=== PATIENT | male | born 2000 | race Caucasian/White ===

== ENCOUNTER 2020-02-29 20:40 | Emergency (ER) | payer MEDICAID, SELFPAY ==
[2020-02-29] VITALS (10 sets, daily range): BP systolic 140–163; BP diastolic 84–97; PULSE 70–99; RESP 16; TEMP 36.6; O2SAT 98–99; BMI 24.3
--- NOTE | 2020-02-29 20:51 | CTR_ITS ---
PROCEDURE INFORMATION: Exam: CT Head Without Contrast Exam date and time: 02/29/2020 8:53 PM Age: 19 years old Clinical indication: Altered mental status/memory loss; Patient HX: AMS. Patient nearly catatonic. No further history. TECHNIQUE: Imaging protocol: Computed tomography of the head without contrast. Radiation optimization: All CT scans at this facility use at least one of these dose optimization techniques: automated exposure control; mA and/or kV adjustment per patient size (includes targeted exams where dose is matched to clinical indication); or iterative reconstruction. COMPARISON: No relevant prior studies available. RADIATION DOSE METRICS: Total DLP: 859.2 mGy-cm FINDINGS: Brain: Normal. No hemorrhage. Unremarkable white matter. No mass effect. Ventricles: Normal. No ventriculomegaly. Bones/joints: Unremarkable. No acute fracture. Sinuses: Visualized sinuses are unremarkable. No fluid levels. Mastoid air cells: Visualized mastoid air cells are well aerated. Soft tissues: Unremarkable. CT/CT head wo con* [id number] IMPRESSION: No acute intracranial abnormality. Radiation Dose CTDIVOL = (mGy): DLP = 859.2 (mGy-cm)
--- NOTE | 2020-02-29 20:51 | XRR_ITS ---
PROCEDURE INFORMATION: Exam: XR Chest, 1 View Exam date and time: 02/29/2020 9:08 PM Age: 19 years old Clinical indication: Cough TECHNIQUE: Imaging protocol: XR of the chest Views: 1 view. COMPARISON: No relevant prior studies available. FINDINGS: Lungs: Unremarkable. No consolidation. Pleural space: No pneumothorax. Heart/Mediastinum: Unremarkable. No cardiomegaly. Bones/joints: No acute findings. XR/XR chest 1V portable [id number] IMPRESSION: No acute findings.
--- NOTE | 2020-02-29 20:52 | ECG_ITS ---
Measurements Intervals [place] Rate: 82 P: 33 WV: 164 QRS: 60 QRSD: 76 T: 31 QT: 327 QTc: 384 SINUS RHYTHM WITH SINUS ARRHYTHMIA Compared to ECG 02/06/2016 12:58:29 Sinus bradycardia no longer present Electronically Signed On 03-01-2020 16:19:31 CDT by Rocio Hernandez M.D. [email or web address]
--- NOTE | 2020-02-29 20:54 | W.ED.CHESTPA ---
HPI - Chest Pain General: Chief Complaint: Chest Pain Stated Complaint: cp sob Time Seen by Provider: 02/29/20 20:51 History of Present Illness: HPI narrative: George is a 19-year-old male brought in with a report of altered mental status, chest pain and collapsing. This was witnessed by admissions staff here at our hospital. The person that dropped him off was reportedly his [id number] and she has left. The patient will answer some yes and no questions but not others. History is very limited at this time. He indicates that he has chest pain by shaking his head and denies any shortness of breath. He is denying taking any drugs. Review of Systems General: Reports: Other (Patient will not cooperate to answer questions.) PFSH ED PFSH: Social History Smoking and tobacco status: current every day smoker Physical Exam Const: COMMON NORMALS: healthy appearing and well nourished GENERAL APPEARANCE: well developed HENMT: COMMON NORMALS: normocephalic, atraumatic, hearing grossly normal bilaterally, external ears normal, EAC's normal, Normal external nose present and moist oral mucous membranes HEAD & SCALP: normal to inspection, normocephalic and atraumatic FACE & SINUS: normal facial exam and face symmetric NOSE: Normal external nose present and Normal nares present EXTERNAL EAR: Yes external ears normal EXTERNAL AUDITORY CANAL: EAC's normal MOUTH: Normal oral and palatal mucosa present, lip normal and tongue normal Eye: COMMON NORMALS: Equal, round and reactive pupils present, EOMs intact bilaterally, conjunctivae normal and no scleral icterus GENERAL EYE: appearance normal, both eyes and all related structures and normal light reflex ALIGNMENT: Yes alignment normal PERIORBITAL: periorbital findings normal EYELID: eyelids normal CONJUNCTIVA: Yes conjunctivae normal SCLERA: sclerae normal PUPIL: Yes Equal, round and reactive pupils present DIRECT OPHTHALMOSCOPY: Yes normal light reflex Neck/C-Spine: COMMON NORMALS: full ROM, no lymphadenopathy, supple, no meningeal signs and no JVD GENERAL: Yes normal visual inspection and Yes trachea midline CERVICAL SPINE: Yes cervical ROM normal Chest: COMMONS NORMALS: normal inspection of the chest and normal palpation of entire chest wall Resp: COMMON NORMALS: normal respiratory effort, No retractions, No use of accessory muscles and clear to auscultation bilaterally EFFORT & INSPECTION: Yes able to speak in complete sentences AUSCULTATION: clear to auscultation bilaterally, no crackles, no rales, no rhonchi and no wheezes Cardio: COMMON NORMALS: no JVD, regular rate, regular rhythm, S1 normal heart sound present, S2 normal heart sound present, No gallops present (Cardio), No clicks present (Cardio), No murmurs present (Cardio) and No rub (Cardio) RATE: regular rate RHYTHM: regular rhythm HEART SOUNDS: S1 normal heart sound present, S2 normal heart sound present, no click, no gallops, no murmurs and no rubs GI: COMMON NORMALS: Soft to palpation, non-tender, No hepatosplenomegaly present and no masses PALPATION: Yes Soft to palpation, No Tenderness to palpation present (GI), No Guarding due to palpation present (GI), No Rigid due to palpation, Yes No hepatosplenomegaly present, No Hernia present, No Palpable mass present and No Pulsatile mass present : COMMON NORMALS: Yes no CVA tenderness BLADDER/KIDNEY EXAM: Yes no CVA tenderness Back/Pelvis: COMMON NORMALS: no CVA tenderness, thoracic and lumbar spine normal to inspection, no thoracic nor lumbar tenderness and thoraco-lumbar ROM normal Extremity: COMMON NORMALS: normal to inspection, full ROM, capillary refill normal, no joint enlargement, no clubbing, cyanosis or edema and no calf tenderness Neuro: MENINGEAL SIGNS: Yes no meningeal signs Skin: COMMON NORMALS: no rashes or lesions noted, turgor normal, no jaundice, no petechiae and no mottling GENERAL SKIN EXAM: no rashes or lesions noted and turgor normal Course ED course: 2119 -a friend of Elvi has arrived and stated that he was fighting with his girlfriend not . It was a verbal argument not physical. His girlfriend left with someone else and then he began to have chest pain. The character of the pain was not described to her. She does not believe that he has any chronic medical problems or has had any surgeries. She states to her knowledge she does not use drugs or smoke cigarettes. 2244 -the patient continues to complain of pain from his left shoulder down to his right hip. His d-dimer is negative and his pulses are intact throughout. I do not believe this to be a dissection based upon his pulses being intact, a negative d-dimer and a normal chest x-ray. Nonetheless I cannot explain the patient's pain. I will do a CTA of the aorta to rule out dissection. Patient continues to not talk but he interacts and texts and does not appear to have any acute focal neurologic deficits. 0015 -George is now talking and stating he wants to go home. His ride is waiting and he wants to leave AGAINST MEDICAL ADVICE. He shows no sign of impairment and appears to have the capacity and is competent to make sound decisions. He understands risks of leaving including ultimately or severe permanent disability. After much with asking by me the patient does agree to stay for at least the results of his CT of his chest. Vital Signs: Vital signs: Vital Signs Temperature 97.8 F 02/29/20 20:49 Pulse Rate 72 02/29/20 21:55 Respiratory Rate 16 02/29/20 20:49 Blood Pressure 140/84 02/29/20 21:55 Pulse Oximetry 98 02/29/20 21:55 MDM - Chest Pain MDM Narrative: Medical decision making narrative: 0025 -the patient understands his CT is negative. He refuses to wait for discharge instructions. He is demanding his IV be taken out and he be discharged immediately. I see no sign of acute life-threatening problem at this time such as infectious etiology, cardiac etiology, aortic etiology or otherwise. Patient understands he is welcome to return should he change his mind. Patient stands he is at risk for by leaving. He verbalizes understanding is I gave him verbal discharge instructions but he refused to wait for written discharge instructions. Patient appeared to have more than the capacity to make this decision. He also understood he can return if he needed to. The patient was warned but he was also welcome to return. Lab Data: Labs: Lab Results 02/29/20 02/29/20 02/29/20 Range/Units 20:58 20:59 20:59 WBC 8.1 (4.5-13.0) 10^3/ uL RBC 6.03 H (4.1-5.3) 10^6/u L Hgb 17.1 H (11.7-16.6) g/dL Hct 50.3 (42.0-52.0) % MCV 83.4 (80-94) fL MCH 28.4 (28.0-34.0) pg MCHC 34.0 (30.0-36.0) g/dL RDW 11.5 L (12.1-15.1) % Plt Count 256 (130-400) 10^3/c mm MPV 9.4 (7.4-10.4) fL Neut % (Auto) 74.5 % Lymph % (Auto) 18.8 % [place] % (Auto) 5.3 % Eos % (Auto) 0.5 % Baso % (Auto) 0.7 % Neut # (Auto) 6.0 (1.8-8.0) 10^3/u L Lymph # (Auto) 1.5 (1.5-6.5) 10^3/u L [place] # (Auto) 0.4 (0.2-0.9) 10^3/u L Eos # (Auto) 0.0 (0.0-0.8) 10^3/u L Baso # (Auto) 0.1 (0.0-0.1) 10^3/u L Nucleated RBC % (a uto) 0 % Nucleated RBCs # 0.0 /100WBC PT 14.30 H (10.5-13.3) SECO NDS INR 1.07 (0.8-1.2) D-Dimer 0.59 (0-0.59) ug/mIFE U Specimen Type Arterial Sample Site Brachial, right ABG pH 7.41 (7.35-7.45) ABG pCO2 41.9 (35-45) mmHg ABG pO2 86.8 (80.0-100.0) mmH g ABG HCO3 26.6 H (22-26) mmol/L ABG O2 Saturation 97.5 ABG Base Excess 1.7 (-2.0-2.0) mmol/ L Derrick Test Pos A-a O2 Gradient 10.0 (5-10) mmHg Hematocrit 52.6 H (42-52) % Hgb O2 Saturation 96.4 (95-100) % Carboxyhemoglobin 0.5 (0.4-20.1) %THgb Methemoglobin 0.7 (0.4-1.5) % Total Hemoglobin 17.2 (14-18) g/dL Sodium 142.0 (131-143) mmol/L Potassium 3.5 (3.5-5.0) mmol/L Glucose 115.0 (70-115) mg/dL Ionized Calcium 1.2 (1.1-1.4) mmol/L Supervisor Braiding ID mary anne Chloride (98-107) mmol/L Carbon Dioxide (22-29) mmol/L Anion Gap (5-19) BUN (6-20) mg/dL Creatinine (0.7-1.2) mg/dL GFR Calculation (90-130) mL/min POC Glucose (70-110) mg/dL Calculated Osmolal ity (285-295) mOsm/k g Lactic Acid (0.5-2.2) mmol/L Calcium (8.5-10.5) mg/dL Magnesium (1.7-2.2) mg/dL Total Bilirubin (0.15-1.2) mg/dL AST (0-40) U/L ALT (0-41) U/L Alkaline Phosphata se (40-130) IU/L Creatine Kinase (39-308) U/L Troponin T Baselin e (0-15) ng/mL Troponin T 120 Min adan (0-15) ng/mL Delta Troponin T (0-10) ABS# Total Protein (6.6-8.7) g/dL Albumin (3.5-5.2) g/dL Globulin (1.3-4.6) g/dL Lipase (13-60) U/L Urine Color (Yellow) Urine Appearance (CLEAR) Urine pH (5-7) Ur Specific Gravit y (1.005-1.030) Urine Protein (Negative) Urine Glucose (UA) (Normal) Urine Ketones (Negative) Urine Blood (Negative) Urine Nitrate (Negative) Urine Bilirubin (NEGATIVE) Urine Urobilinogen (Negative) mg/dL Ur Leukocyte Tanisha ase (Negative) Urine RBC (0-2) /hpf Urine WBC (0-5) /hpf Ur Squamous Epith Cells (0-5) Urine Bacteria (NONE) Urine Mucus Urine Opiates Scre en (Negative) ng/mL Ur Barbiturates Sc reen (Negative) ng/mL Ur Phencyclidine S crn (Negative) ng/mL Ur Amphetamines Sc reen (Negative) ng/mL U Benzodiazepines Scrn (Negative) ng/mL Urine Cocaine Scre en (Negative) ng/mL U Marijuana (THC) Screen (Negative) ng/mL Ethyl Alcohol (0-10) mg/dL 02/29/20 02/29/20 02/29/20 Range/Units 20:59 20:59 20:59 WBC (4.5-13.0) 10^3/ uL RBC (4.1-5.3) 10^6/u L Hgb (11.7-16.6) g/dL Hct (42.0-52.0) % MCV (80-94) fL MCH (28.0-34.0) pg MCHC (30.0-36.0) g/dL RDW (12.1-15.1) % Plt Count (130-400) 10^3/c mm MPV (7.4-10.4) fL Neut % (Auto) % Lymph % (Auto) % [place] % (Auto) % Eos % (Auto) % Baso % (Auto) % Neut # (Auto) (1.8-8.0) 10^3/u L Lymph # (Auto) (1.5-6.5) 10^3/u L [place] # (Auto) (0.2-0.9) 10^3/u L Eos # (Auto) (0.0-0.8) 10^3/u L Baso # (Auto) (0.0-0.1) 10^3/u L Nucleated RBC % (a uto) % Nucleated RBCs # /100WBC PT (10.5-13.3) SECO NDS INR (0.8-1.2) D-Dimer (0-0.59) ug/mIFE U Specimen Type Sample Site ABG pH (7.35-7.45) ABG pCO2 (35-45) mmHg ABG pO2 (80.0-100.0) mmH g ABG HCO3 (22-26) mmol/L ABG O2 Saturation ABG Base Excess (-2.0-2.0) mmol/ L Derrick Test A-a O2 Gradient (5-10) mmHg Hematocrit (42-52) % Hgb O2 Saturation (95-100) % Carboxyhemoglobin (0.4-20.1) %THgb Methemoglobin (0.4-1.5) % Total Hemoglobin (14-18) g/dL Sodium 141 (131-143) mmol/L Potassium 3.7 (3.5-5.0) mmol/L Glucose 120 H (70-115) mg/dL Ionized Calcium (1.1-1.4) mmol/L Supervisor Braiding ID Chloride 102 (98-107) mmol/L Carbon Dioxide 25 (22-29) mmol/L Anion Gap 17.7 (5-19) BUN 10 (6-20) mg/dL Creatinine 1.0 (0.7-1.2) mg/dL GFR Calculation 96.3 (90-130) mL/min POC Glucose (70-110) mg/dL Calculated Osmolal ity 289 (285-295) mOsm/k g Lactic Acid 1.5 (0.5-2.2) mmol/L Calcium 9.8 (8.5-10.5) mg/dL Magnesium 2.5 H (1.7-2.2) mg/dL Total Bilirubin 1.7 H (0.15-1.2) mg/dL AST 20 (0-40) U/L ALT 15 (0-41) U/L Alkaline Phosphata se 77 (40-130) IU/L Creatine Kinase 102 (39-308) U/L Troponin T Baselin e 6 (0-15) ng/mL Troponin T 120 Min adan (0-15) ng/mL Delta Troponin T (0-10) ABS# Total Protein 7.7 (6.6-8.7) g/dL Albumin 5.3 H (3.5-5.2) g/dL Globulin 2.4 (1.3-4.6) g/dL Lipase 18 (13-60) U/L Urine Color (Yellow) Urine Appearance (CLEAR) Urine pH (5-7) Ur Specific Gravit y (1.005-1.030) Urine Protein (Negative) Urine Glucose (UA) (Normal) Urine Ketones (Negative) Urine Blood (Negative) Urine Nitrate (Negative) Urine Bilirubin (NEGATIVE) Urine Urobilinogen (Negative) mg/dL Ur Leukocyte Tanisha ase (Negative) Urine RBC (0-2) /hpf Urine WBC (0-5) /hpf Ur Squamous Epith Cells (0-5) Urine Bacteria (NONE) Urine Mucus Urine Opiates Scre en (Negative) ng/mL Ur Barbiturates Sc reen (Negative) ng/mL Ur Phencyclidine S crn (Negative) ng/mL Ur Amphetamines Sc reen (Negative) ng/mL U Benzodiazepines Scrn (Negative) ng/mL Urine Cocaine Scre en (Negative) ng/mL U Marijuana (THC) Screen (Negative) ng/mL Ethyl Alcohol < 10 (0-10) mg/dL 02/29/20 02/29/20 02/29/20 Range/Units 21:45 21:45 21:56 WBC (4.5-13.0) 10^3/ uL RBC (4.1-5.3) 10^6/u L Hgb (11.7-16.6) g/dL Hct (42.0-52.0) % MCV (80-94) fL MCH (28.0-34.0) pg MCHC (30.0-36.0) g/dL RDW (12.1-15.1) % Plt Count (130-400) 10^3/c mm MPV (7.4-10.4) fL Neut % (Auto) % Lymph % (Auto) % [place] % (Auto) % Eos % (Auto) % Baso % (Auto) % Neut # (Auto) (1.8-8.0) 10^3/u L Lymph # (Auto) (1.5-6.5) 10^3/u L [place] # (Auto) (0.2-0.9) 10^3/u L Eos # (Auto) (0.0-0.8) 10^3/u L Baso # (Auto) (0.0-0.1) 10^3/u L Nucleated RBC % (a uto) % Nucleated RBCs # /100WBC PT (10.5-13.3) SECO NDS INR (0.8-1.2) D-Dimer (0-0.59) ug/mIFE U Specimen Type Sample Site ABG pH (7.35-7.45) ABG pCO2 (35-45) mmHg ABG pO2 (80.0-100.0) mmH g ABG HCO3 (22-26) mmol/L ABG O2 Saturation ABG Base Excess (-2.0-2.0) mmol/ L Derrick Test A-a O2 Gradient (5-10) mmHg Hematocrit (42-52) % Hgb O2 Saturation (95-100) % Carboxyhemoglobin (0.4-20.1) %THgb Methemoglobin (0.4-1.5) % Total Hemoglobin (14-18) g/dL Sodium (131-143) mmol/L Potassium (3.5-5.0) mmol/L Glucose (70-115) mg/dL Ionized Calcium (1.1-1.4) mmol/L Supervisor Braiding ID Chloride (98-107) mmol/L Carbon Dioxide (22-29) mmol/L Anion Gap (5-19) BUN (6-20) mg/dL Creatinine (0.7-1.2) mg/dL GFR Calculation (90-130) mL/min POC Glucose 92 (70-110) mg/dL Calculated Osmolal ity (285-295) mOsm/k g Lactic Acid (0.5-2.2) mmol/L Calcium (8.5-10.5) mg/dL Magnesium (1.7-2.2) mg/dL Total Bilirubin (0.15-1.2) mg/dL AST (0-40) U/L ALT (0-41) U/L Alkaline Phosphata se (40-130) IU/L Creatine Kinase (39-308) U/L Troponin T Baselin e (0-15) ng/mL Troponin T 120 Min adan (0-15) ng/mL Delta Troponin T (0-10) ABS# Total Protein (6.6-8.7) g/dL Albumin (3.5-5.2) g/dL Globulin (1.3-4.6) g/dL Lipase (13-60) U/L Urine Color Yellow (Yellow) Urine Appearance Clear (CLEAR) Urine pH 6 (5-7) Ur Specific Gravit y 1.020 (1.005-1.030) Urine Protein Neg (Negative) Urine Glucose (UA) Norm (Normal) Urine Ketones Negative (Negative) Urine Blood Neg (Negative) Urine Nitrate Negative (Negative) Urine Bilirubin Neg (NEGATIVE) Urine Urobilinogen Norm (Negative) mg/dL Ur Leukocyte Tanisha ase Negative (Negative) Urine RBC Rare (0-2) /hpf Urine WBC Rare (0-5) /hpf Ur Squamous Epith Cells Rare (0-5) Urine Bacteria Trace (NONE) Urine Mucus 1+ Urine Opiates Scre en Negative (Negative) ng/mL Ur Barbiturates Sc reen Negative (Negative) ng/mL Ur Phencyclidine S crn Negative (Negative) ng/mL Ur Amphetamines Sc reen Negative (Negative) ng/mL U Benzodiazepines Scrn Negative (Negative) ng/mL Urine Cocaine Scre en Negative (Negative) ng/mL U Marijuana (THC) Screen Positive H (Negative) ng/mL Ethyl Alcohol (0-10) mg/dL 02/29/20 Range/Units 23:10 WBC (4.5-13.0) 10^3/ uL RBC (4.1-5.3) 10^6/u L Hgb (11.7-16.6) g/dL Hct (42.0-52.0) % MCV (80-94) fL MCH (28.0-34.0) pg MCHC (30.0-36.0) g/dL RDW (12.1-15.1) % Plt Count (130-400) 10^3/c mm MPV (7.4-10.4) fL Neut % (Auto) % Lymph % (Auto) % [place] % (Auto) % Eos % (Auto) % Baso % (Auto) % Neut # (Auto) (1.8-8.0) 10^3/u L Lymph # (Auto) (1.5-6.5) 10^3/u L [place] # (Auto) (0.2-0.9) 10^3/u L Eos # (Auto) (0.0-0.8) 10^3/u L Baso # (Auto) (0.0-0.1) 10^3/u L Nucleated RBC % (a uto) % Nucleated RBCs # /100WBC PT (10.5-13.3) SECO NDS INR (0.8-1.2) D-Dimer (0-0.59) ug/mIFE U Specimen Type Sample Site ABG pH (7.35-7.45) ABG pCO2 (35-45) mmHg ABG pO2 (80.0-100.0) mmH g ABG HCO3 (22-26) mmol/L ABG O2 Saturation ABG Base Excess (-2.0-2.0) mmol/ L Derrick Test A-a O2 Gradient (5-10) mmHg Hematocrit (42-52) % Hgb O2 Saturation (95-100) % Carboxyhemoglobin (0.4-20.1) %THgb Methemoglobin (0.4-1.5) % Total Hemoglobin (14-18) g/dL Sodium (131-143) mmol/L Potassium (3.5-5.0) mmol/L Glucose (70-115) mg/dL Ionized Calcium (1.1-1.4) mmol/L Supervisor Braiding ID Chloride (98-107) mmol/L Carbon Dioxide (22-29) mmol/L Anion Gap (5-19) BUN (6-20) mg/dL Creatinine (0.7-1.2) mg/dL GFR Calculation (90-130) mL/min POC Glucose (70-110) mg/dL Calculated Osmolal ity (285-295) mOsm/k g Lactic Acid (0.5-2.2) mmol/L Calcium (8.5-10.5) mg/dL Magnesium (1.7-2.2) mg/dL Total Bilirubin (0.15-1.2) mg/dL AST (0-40) U/L ALT (0-41) U/L Alkaline Phosphata se (40-130) IU/L Creatine Kinase (39-308) U/L Troponin T Baselin e (0-15) ng/mL Troponin T 120 Min adan 6.00 (0-15) ng/mL Delta Troponin T 0 (0-10) ABS# Total Protein (6.6-8.7) g/dL Albumin (3.5-5.2) g/dL Globulin (1.3-4.6) g/dL Lipase (13-60) U/L Urine Color (Yellow) Urine Appearance (CLEAR) Urine pH (5-7) Ur Specific Gravit y (1.005-1.030) Urine Protein (Negative) Urine Glucose (UA) (Normal) Urine Ketones (Negative) Urine Blood (Negative) Urine Nitrate (Negative) Urine Bilirubin (NEGATIVE) Urine Urobilinogen (Negative) mg/dL Ur Leukocyte Tanisha ase (Negative) Urine RBC (0-2) /hpf Urine WBC (0-5) /hpf Ur Squamous Epith Cells (0-5) Urine Bacteria (NONE) Urine Mucus Urine Opiates Scre en (Negative) ng/mL Ur Barbiturates Sc reen (Negative) ng/mL Ur Phencyclidine S crn (Negative) ng/mL Ur Amphetamines Sc reen (Negative) ng/mL U Benzodiazepines Scrn (Negative) ng/mL Urine Cocaine Scre en (Negative) ng/mL U Marijuana (THC) Screen (Negative) ng/mL Ethyl Alcohol (0-10) mg/dL Imaging Data^: CXR: My impression: No acute cardiopulmonary findings. CT Head: Radiologist's impression: [address] [address] [address] Scan Report Signed Patient: Gilberto Looney Unit #: [id number] : 2000 Age/Sex: 19 / M ADM Date: 02/29/20 Loc: ER Room/Bed: Attending Dr: Ordering Provider/Ordering MD: Maria Elena Gee DO Date of Service: 02/29/20 Procedure(s): CT head wo con* [id number] Accession Number(s): [id number] Report Number: [id number] PROCEDURE INFORMATION: Exam: CT Head Without Contrast Exam date and time: 02/29/2020 8:53 PM Age: 19 years old Clinical indication: Altered mental status/memory loss; Patient HX: AMS. Patient nearly catatonic. No further history. TECHNIQUE: Imaging protocol: Computed tomography of the head without contrast. Radiation optimization: All CT scans at this facility use at least one of these dose optimization techniques: automated exposure control; mA and/or kV adjustment per patient size (includes targeted exams where dose is matched to clinical indication); or iterative reconstruction. COMPARISON: No relevant prior studies available. RADIATION DOSE METRICS: Total DLP: 859.2 mGy-cm FINDINGS: Brain: Normal. No hemorrhage. Unremarkable white matter. No mass effect. Ventricles: Normal. No ventriculomegaly. Bones/joints: Unremarkable. No acute fracture. Sinuses: Visualized sinuses are unremarkable. No fluid levels. Mastoid air cells: Visualized mastoid air cells are well aerated. Soft tissues: Unremarkable. CT/CT head wo con* [id number] IMPRESSION: No acute intracranial abnormality. Radiation Dose CTDIVOL = (mGy): DLP = 859.2 (mGy-cm) Dictated By: Mac Cisneros Signed By: Mac Cisneros Signed Date/Time: 02/29/202123 DD/ 22 CT Cervical Spine: Radiologist's impression: [address] [place] [id number] CT Scan Report Signed Patient: Gilberto Looney Unit #: [id number] : 2000 Age/Sex: 19 / M ADM Date: 02/29/20 Loc: ER Room/Bed: Attending Dr: Ordering Provider/Ordering MD: Maria Elena Gee DO Date of Service: 02/29/20 Procedure(s): CT cervical spin wo con* [id number] Accession Number(s): [id number] Report Number: [id number] PROCEDURE INFORMATION: Exam: CT Cervical Spine Without Contrast Exam date and time: 02/29/2020 8:53 PM Age: 19 years old Clinical indication: Neck pain TECHNIQUE: Imaging protocol: Computed tomography images of the cervical spine without contrast. Radiation optimization: All CT scans at this facility use at least one of these dose optimization techniques: automated exposure control; mA and/or kV adjustment per patient size (includes targeted exams where dose is matched to clinical indication); or iterative reconstruction. COMPARISON: No relevant prior studies available. RADIATION DOSE METRICS: Total DLP: 522.21 mGy-cm FINDINGS: Vertebrae: No acute fracture. Normal alignment. Discs/Spinal canal/Neural foramina: No significant disc protrusion. No severe spinal canal stenosis. No significant neural foraminal narrowing. Soft tissues: Unremarkable. Lungs: Lung apices are normal. CT/CT cervical spin wo con* [id number] IMPRESSION: No acute findings. Radiation Dose CTDIVOL = (mGy): DLP = 522.21 (mGy-cm) Dictated By: Mac Cisneros Signed By: Mac Cisneros Signed Date/Time: 02/29/202129 DD/ 28 CTA Aorta: Radiologist's impression: [address] [address] [address] Scan Report Signed Patient: Gilberto Looney Unit #: [id number] : 2000 Age/Sex: 19 / M ADM Date: 02/29/20 Loc: ER Room/Bed: Attending Dr: Ordering Provider/Ordering MD: Maria Elena Gee DO Date of Service: 02/29/20 Procedure(s): CT angio chest abdomen pelvis Accession Number(s): [id number] Report Number: [id number] PROCEDURE INFORMATION: Exam: CT Angiography Chest With Contrast Exam date and time: 02/29/2020 11:52 PM Age: 19 years old Clinical indication: Patient HX: AMS. Patient nearly catatonic. No further history. ; Additional info: Chest to hip pain TECHNIQUE: Imaging protocol: Computed tomographic angiography of the chest with intravenous contrast. 3D rendering: MIP and/or 3D reconstructed images were created by the technologist. Radiation optimization: All CT scans at this facility use at least one of these dose optimization techniques: automated exposure control; mA and/or kV adjustment per patient size (includes targeted exams where dose is matched to clinical indication); or iterative reconstruction. Contrast material: OMNI 350; Contrast volume: 95 ml; Contrast route: 20G; COMPARISON: CR Hip 2-3v LEFT wwo Pelv* [id number] 12/05/2015 1:09 PM RADIATION DOSE METRICS: Total DLP: 1429.19 mGy-cm FINDINGS: Pulmonary arteries: Normal. No pulmonary emboli. Aorta: Unremarkable. No aortic aneurysm. No aortic dissection. Lungs: Unremarkable. No consolidation. No masses. Pleural space: Unremarkable. No pneumothorax. No pleural effusion. Heart: Unremarkable. No cardiomegaly. No pericardial effusion. Lymph nodes: Unremarkable. No enlarged lymph nodes. Bones/joints: Unremarkable. No acute fracture. Soft tissues: Unremarkable. IMPRESSION: No acute findings. PROCEDURE INFORMATION: Exam: CT Angiography Abdomen and Pelvis With Contrast Exam date and time: 02/29/2020 11:52 PM Age: 19 years old Clinical indication: Patient HX: AMS. Patient nearly catatonic. No further history. ; Additional info: Chest to hip pain TECHNIQUE: Imaging protocol: Computed tomographic angiography of the abdomen and pelvis with intravenous contrast material. 3D rendering: MIP and/or 3D reconstructed images were created by the technologist. Radiation optimization: All CT scans at this facility use at least one of these dose optimization techniques: automated exposure control; mA and/or kV adjustment per patient size (includes targeted exams where dose is matched to clinical indication); or iterative reconstruction. Contrast material: OMNI 350; Contrast volume: 95 ml; Contrast route: 20G; COMPARISON: CR Hip 2-3v LEFT wwo Pelv* [id number] 12/05/2015 1:09 PM RADIATION DOSE METRICS: Total DLP: 1429.19 mGy-cm FINDINGS: Aorta: No aortic aneurysm. No aortic dissection. Celiac trunk and mesenteric arteries: No occlusion or significant stenosis. Renal arteries: No occlusion or significant stenosis. Incidental note of an accessory right renal artery. Right iliac arteries: No occlusion or significant stenosis. Left iliac arteries: No occlusion or significant stenosis. Liver: No mass. Gallbladder and bile ducts: Unremarkable. No calcified stones. No ductal dilation. Pancreas: Unremarkable. No mass. No ductal dilation. Spleen: Unremarkable. No splenomegaly. Adrenals: Unremarkable. No mass. Kidneys and ureters: Unremarkable. No solid mass. No hydronephrosis. Stomach and bowel: Unremarkable. No obstruction. No mucosal thickening. Constipation. Appendix: No evidence of appendicitis. Intraperitoneal space: Unremarkable. No free air. No significant fluid collection. Lymph nodes: Unremarkable. No enlarged lymph nodes. Bladder: Unremarkable. No mass. Reproductive: Unremarkable as visualized. Bones/joints: No acute fracture. No dislocation. Soft tissues: Unremarkable. CT/CT angio chest abdomen pelvis IMPRESSION: 1. Unremarkable CTA. 2. Constipation. Radiation Dose CTDIVOL = (mGy): DLP = 1429.19 1429.19 (mGy-cm) Dictated By: Mac Cisneros Signed By: Mac Cisneros Signed Date/Time: 03/01/2021 DD/ EKG Data^: EKG 1: Attestation: I personally reviewed and interpreted this EKG as follows: EKG interpretation date: 02/29/20 EKG interpretation time: 20:53 Interpretation: Normal sinus rhythm at 82 beats a minute, no acute ST or T wave changes, no blocks, normal intervals. No old for comparison. EKG 2: Attestation: I personally reviewed and interpreted this EKG as follows: EKG interpretation date: 02/29/20 EKG interpretation time: 22:54 Interpretation: Normal sinus rhythm at 74 beats a minute, no acute ST or T wave changes, normal intervals, no blocks. Discharge Plan Discharge Patient Disposition: Left Against Medical Advice Clinical Impression: Chest pain Qualifiers: Chest pain type: unspecified Qualified Code(s): R07.9 - Chest pain, unspecified Condition: Stable Prescriptions: No Action No Known Home Medications RF: 0 Discharge Orders: Discharge Order (Routine); Ordered 03/01/20 Ordered By: Maria Elena Gee Referrals: Mary Ann Bowden DO [Primary Care Provider] - Discharge Date/Time: 03/01/20 00:30 Coding Level of Care Code ED Resident Physician In Radiology for Chg Fwd Exam Comprehensive
[2020-02-29] MEDS: sodium chloride 0.9% 1,000 ML 999 ML IV (21:02)
[2020-02-29] MEDS: sodium chloride 0.9% 1,000 ML 100 ML IV (21:02)
[2020-02-29 21:13] LABS: ABG PCO2 41.9 mmHg (35-45); ABG PH Result 7.41 (7.35-7.45); Arterial Blood Gas Hematocrit 52.6 % (42-52); Base Excess ABG 1.7 mmol/L (-2.0-2.0); Blood Gas Allen Test Pos; Blood Gas Sample Site Brachial, right; Blood Gas Sample Type Arterial; Carboxyhemoglobin 0.5 %THgb (0.4-20.1); HCO3 ABG 26.6 mmol/L (22-26); HGB O2 Sat 96.4 % (95-100); Ionized Calcium Level - ABG 1.2 mmol/L (1.1-1.4); Methemoglobin 0.7 % (0.4-1.5); Oxygen Saturation ABG 97.5; PO2 ABG 86.8 mmHg (80.0-100.0); Potassium Level - ABG 3.5 mmol/L (3.5-5.0); Total Hemoglobin 17.2 g/dL (14-18)
[2020-02-29 21:13] LABS: Basophils # 0.1 10^3/uL (0.0-0.1); Basophils % 0.7 %; Eosinophils % 0.5 %; Hematocrit 50.3 % (42.0-52.0); Hemoglobin 17.1 g/dL (11.7-16.6); Lymphocytes # 1.5 10^3/uL (1.5-6.5); Lymphocytes % 18.8 %; Mean Corpuscular Hemoglobin 28.4 pg (28.0-34.0); Mean Corpuscular Volume 83.4 fL (80-94); Mean Platelet Volume 9.4 fL (7.4-10.4); Monocytes # 0.4 10^3/uL (0.2-0.9); Monocytes % 5.3 %; Neutrophils % 74.5 %; Nucleated Red Blood Cells % 0 %; Platelet Count 256 10^3/cmm (130-400); Red Blood Count 6.03 10^6/uL (4.1-5.3); Red Cell Distribution Width 11.5 % (12.1-15.1); White Blood Count 8.1 10^3/uL (4.5-13.0)
[2020-02-29 21:31] LABS: Lactic Sepsis W/Reflex 1.5 mmol/L (0.5-2.2)
[2020-02-29 21:34] LABS: Troponin(5th) Baseline 6 ng/mL (0-15)
[2020-02-29 21:49] LABS: INR 1.07 (0.8-1.2)
[2020-02-29 21:52] LABS: D Dimer 0.59 ug/mIFEU (0-0.59)
[2020-02-29 21:59] LABS: Glucose Point of Care 92 mg/dL (70-110)
[2020-02-29 22:19] LABS: Alanine Aminotransferase 15 U/L (0-41); Albumin Level 5.3 g/dL (3.5-5.2); Alkaline Phosphatase 77 IU/L (40-130); Anion Gap 17.7 (5-19); Aspartate Amino Transferase 20 U/L (0-40); Blood Urea Nitrogen 10 mg/dL (6-20); Calcium 9.8 mg/dL (8.5-10.5); Carbon Dioxide 25 mmol/L (22-29); Chloride 102 mmol/L (98-107); Creatine Phosphokinase 102 U/L (39-308); Globulin 2.4 g/dL (1.3-4.6); Glomerular Filtration Rate 96.3 mL/min (90-130); Glucose 120 mg/dL (65-115); Lipase 18 U/L (13-60); Magnesium 2.5 mg/dL (1.7-2.2); Osmolality Calculated 289 mOsm/kg (285-295); Potassium 3.7 mmol/L (3.5-5.1); Sodium 141 mmol/L (136-145); Total Bilirubin 1.7 mg/dL (0.15-1.2); Total Protein 7.7 g/dL (6.6-8.7)
[2020-02-29 22:26] LABS: Amphetamines Screen Urine Negative (Negative); Barbiturates Screen Urine Negative (Negative); Benzodiazepines Screen Urine Negative (Negative); Cocaine Screen Urine Negative (Negative); Opiate Screen Urine Negative (Negative); PCP Screen Urine Negative (Negative); THC Screen Urine Positive (Negative)
[2020-02-29 22:27] LABS: Alcohol Level < 10 mg/dL (0-10)
[2020-02-29 22:35] LABS: Urine Appearance Clear (CLEAR); Urine Color Yellow (Yellow); pH Urine 6 (5-7)
[2020-02-29 22:36] LABS: Bacteria Urine TRACE; Bilirubin Urine Neg (NEGATIVE); Blood Urine Neg (Negative); Glucose Urine UA Norm (Normal); Ketones Urine Negative (Negative); Leukocyte Esterase Urine Negative (Negative); Mucus Urine 1+; Nitrate Urine Negative (Negative); Protein Urine Neg (Negative); RBC Urine RARE /hpf (0-2); Squamous Epithelial Cell Urine RARE (0-5); Urobilinogen Urine Norm (Negative); WBC Urine RARE /hpf (0-5)
--- NOTE | 2020-02-29 22:43 | CTR_ITS ---
PROCEDURE INFORMATION: Exam: CT Angiography Chest With Contrast Exam date and time: 02/29/2020 11:52 PM Age: 19 years old Clinical indication: Patient HX: AMS. Patient nearly catatonic. No further history. ; Additional info: Chest to hip pain TECHNIQUE: Imaging protocol: Computed tomographic angiography of the chest with intravenous contrast. 3D rendering: MIP and/or 3D reconstructed images were created by the technologist. Radiation optimization: All CT scans at this facility use at least one of these dose optimization techniques: automated exposure control; mA and/or kV adjustment per patient size (includes targeted exams where dose is matched to clinical indication); or iterative reconstruction. Contrast material: OMNI 350; Contrast volume: 95 ml; Contrast route: 20G; COMPARISON: CR Hip 2-3v LEFT wwo Pelv* [id number] 12/05/2015 1:09 PM RADIATION DOSE METRICS: Total DLP: 1429.19 mGy-cm FINDINGS: Pulmonary arteries: Normal. No pulmonary emboli. Aorta: Unremarkable. No aortic aneurysm. No aortic dissection. Lungs: Unremarkable. No consolidation. No masses. Pleural space: Unremarkable. No pneumothorax. No pleural effusion. Heart: Unremarkable. No cardiomegaly. No pericardial effusion. Lymph nodes: Unremarkable. No enlarged lymph nodes. Bones/joints: Unremarkable. No acute fracture. Soft tissues: Unremarkable. IMPRESSION: No acute findings. PROCEDURE INFORMATION: Exam: CT Angiography Abdomen and Pelvis With Contrast Exam date and time: 02/29/2020 11:52 PM Age: 19 years old Clinical indication: Patient HX: AMS. Patient nearly catatonic. No further history. ; Additional info: Chest to hip pain TECHNIQUE: Imaging protocol: Computed tomographic angiography of the abdomen and pelvis with intravenous contrast material. 3D rendering: MIP and/or 3D reconstructed images were created by the technologist. Radiation optimization: All CT scans at this facility use at least one of these dose optimization techniques: automated exposure control; mA and/or kV adjustment per patient size (includes targeted exams where dose is matched to clinical indication); or iterative reconstruction. Contrast material: OMNI 350; Contrast volume: 95 ml; Contrast route: 20G; COMPARISON: CR Hip 2-3v LEFT wwo Pelv* [id number] 12/05/2015 1:09 PM RADIATION DOSE METRICS: Total DLP: 1429.19 mGy-cm FINDINGS: Aorta: No aortic aneurysm. No aortic dissection. Celiac trunk and mesenteric arteries: No occlusion or significant stenosis. Renal arteries: No occlusion or significant stenosis. Incidental note of an accessory right renal artery. Right iliac arteries: No occlusion or significant stenosis. Left iliac arteries: No occlusion or significant stenosis. Liver: No mass. Gallbladder and bile ducts: Unremarkable. No calcified stones. No ductal dilation. Pancreas: Unremarkable. No mass. No ductal dilation. Spleen: Unremarkable. No splenomegaly. Adrenals: Unremarkable. No mass. Kidneys and ureters: Unremarkable. No solid mass. No hydronephrosis. Stomach and bowel: Unremarkable. No obstruction. No mucosal thickening. Constipation. Appendix: No evidence of appendicitis. Intraperitoneal space: Unremarkable. No free air. No significant fluid collection. Lymph nodes: Unremarkable. No enlarged lymph nodes. Bladder: Unremarkable. No mass. Reproductive: Unremarkable as visualized. Bones/joints: No acute fracture. No dislocation. Soft tissues: Unremarkable. CT/CT angio chest abdomen pelvis IMPRESSION: 1. Unremarkable CTA. 2. Constipation. Radiation Dose CTDIVOL = (mGy): DLP = 1429.19~1429.19 (mGy-cm)
--- NOTE | 2020-02-29 22:52 | ECG_ITS ---
Measurements Intervals [place] Rate: 74 P: 10 VA: 154 QRS: 47 QRSD: 73 T: 39 QT: 356 QTc: 395 SINUS RHYTHM WITH SINUS ARRHYTHMIA Compared to ECG 02/06/2016 12:58:29 Sinus bradycardia no longer present Electronically Signed On 03-01-2020 16:27:25 CDT by Rocio Hernandez M.D. [id number]
--- NOTE | 2020-02-29 23:10 | PC.NURSE ---
Mother's telephone Number [phone]
--- NOTE | 2020-02-29 23:11 | PC.NURSE ---
Mother Raisa Jose [phone]
[2020-02-29 23:34] LABS: Troponin 5 2HR Delta 0 ABS# (0-10)
[2020-02-29] MEDS: iohexol 350 mg/mL 100 mL Btl IV (23:53)
== END 2020-03-01 00:30 | disposition left against medical advice (07) ==
PROVIDERS: Emergency Provider Emergency Medicine; PCP Family Medicine
DX: R07.9 Chest pain, unspecified (principal); Z53.21 Procedure and treatment not carried out due to patient leaving prior to being seen by health care provider; F17.210 Nicotine dependence, cigarettes, uncomplicated
CPT/HCPCS: 12345; 36416; 70450; 71045; 71275; 72125; 74174; 80051; 80053; 80306; 80307; 81001; 82550; 82810; 82962; 83605; 83690; 83735; 83986; 84484; 85025; 85378; 85610; 93005; 96361; 96374; 99283; 99284; A9270; J7030; Q9967